=== PATIENT | female | born 1980 | race Caucasian/White ===

== ENCOUNTER 2018-07-28 22:45 | Emergency (ER) | payer OTHER ==
[~2018-07-28] VITALS: Ht 170.2 cm; Wt 50.0 kg
[2018-07-28 22:52] VITALS: BP 138/103
[2018-07-28] MEDS ORDERED: PB/HYOSCY/ATR/SCOP/LIDO/MAALOX 55 ML BOTTLE PO ONE (23:45)
== END 2018-07-29 00:52 | disposition home or self-care (01) ==
LOC: EMS 22:48
DX: K21.9 Gastro-esophageal reflux disease without esophagitis (principal)